=== PATIENT | female | born 1960 | race Two or more races ===

== ENCOUNTER → 2017-10-11 | Outpatient (CLI) | payer OTHER ==
--- NOTE | 2017-10-11 17:42 | RADRPT ---
PROCEDURE: XR bilateral Knees. CLINICAL INDICATION: Bilateral knee pain. TECHNIQUE: 5 views of both knees are available for review. COMPARISON: None available FINDINGS: Right side: Severe medial, moderately severe patellofemoral, and moderate lateral compartment arthro sis change consists of joint space narrowing indicating chondromalacia, subcortical sclerosis and cy st formation, osteophyte formation and bone remodeling. There is a small joint effusion. No evidence for fracture. Left side: Severe arthrosis of the medial compartment, moderately severe changes of the patellofem oral joint, and moderate changes of the lateral compartment consist of joint space narrowing indicat ing chondromalacia, subcortical sclerosis and cyst formation, osteophyte formation and bone remodeli ng. There is a moderate joint effusion. No evidence for acute fracture. IMPRESSION: 1. Moderate to severe arthrosis of the knee joints affecting the medial compartments to the greates t degree. 2. No acute fractures seen. RPTAT: XX .Niranjan Macdonald MD, MD Date Time Electronically viewed and signed by .Niranjan Macdonald MD, on 10/11/2017 17:42 .T/
--- NOTE | 2017-10-12 05:10 | HKNOTE ---
DATE OF SERVICE: CHIEF COMPLAINT: Bilateral knee pain. HISTORY OF PRESENT ILLNESS: This is a 57-year-old female who is obese with history of diabetes anita itus, complaining of bilateral knee pain. She states that the pain has been progressively worsening . She has recently started performing physical therapy. She does not use any assistive devices. S he has not had any previous injections. She does not take any pain medications. She denies any his tory of trauma. She denies any groin or back pain. The pain is on the inside of both knees. She h as difficulty performing her activities of daily living. She has difficulty walking and climbing st airs. Gait: Antalgic gait, reciprocal gait pattern, right knee. PHYSICAL EXAMINATION: Varus alignment, tender over the medial joint line, a 0 to 120 degrees range of motion, stable to varus valgus stress. Negative Ori, negative anterior drawer, negative post erior drawer, negative Vy's. Left knee exam varus alignment. Tender over the medial joint line, -10 to 100 degrees range of clau on. Crepitus with passive range of motion, negative Ori, negative anterior drawer, negative pos terior drawer, stable to varus valgus stress. Negative Vy's. Motor strength 5/5, hamstrings, quadriceps, tibialis anterior, gastroc soleus bilaterally. X-rays right knee. There is tricompartmental osteoarthritis with marginal osteophytes and subchondr al sclerosis. X-rays left knee. There is tricompartmental osteoarthritis with marginal osteophytes and subchondra l sclerosis. IMPRESSION: A 57-year-old female with bilateral knee osteoarthritis. PLAN: She will continue outpatient physical therapy. We will request authorization for bilateral k nee Monovisc injections. She was instructed on weight loss. She will follow up for her knee inject ions pending approval. Dictated By: STORMY SINGH/CHEY Conf#: [id number] DID#: [id number]
== END | disposition home or self-care (01) ==
LOC: HKI 09:25
PROVIDERS: ATTEND Orthopaedic Surgery Adult Reconstructive Orthopaedic Surgery
DX: M17.0 Bilateral primary osteoarthritis of knee (principal); E11.9 Type 2 diabetes mellitus without complications
CPT/HCPCS: 73564; Z7500; G0463

== ENCOUNTER → 2017-10-21 | Outpatient (CLI) | END | disposition home or self-care (01) ==

== ENCOUNTER 2018-12-02 20:49 | Emergency (ER) | payer OTHER ==
[~2018-12-02] VITALS: Wt 120.7 kg
[2018-12-02] MEDS ORDERED: METF500T24 PO (22:27)
[2018-12-02] MEDS ORDERED: OMEP20CA16 PO (22:28)
[2018-12-02] MEDS ORDERED: ATEN-51 PO (22:28)
[2018-12-02] MEDS ORDERED: LIDOCAINE/MYLANTA 40 ML BTL PO ONE (22:30)
[2018-12-02] MEDS ORDERED: HYDROCHLOROTHIAZIDE PO (22:41)
[2018-12-02] MEDS ORDERED: TRIAMTERENE PO (22:41)
--- NOTE | 2018-12-02 22:53 | ERD ---
ER Documentation Chief Complaint Chief Complaint AP X'S 3 WEEKS HPI This is a 58-year-old female presents for abdominal pain for 3 weeks, she went to all of the hospital, which states she had an abdominal workup with a CT, and they had told her that she was constipated, she was given lactulose, her pain has been in the left side and constant, she has been having bowel movements and has been passing gas, she denies any chest pain or shortness of breath. He has not had any nausea vomiting, she has had no bloody stools. She is scheduled to follow-up with her primary care doctor this week. ROS All systems reviewed and are negative except as per history of present illness. Medications Home Meds Active Scripts Polyethylene Glycol* (Miralax*) 17 Gm Powd.pack, 17 GM PO DAILY, #7 Prov:BEULAH GARCIA MD 12/02/18 Docusate Sodium* (Colace*) 100 Mg Capsule, 100 MG PO TID, #30 CAP Prov:BEULAH GARCIA MD 12/02/18 Reported Medications [Triam/Hctz 75MG/50MG] No Conflict Check, 1 TAB PO DAILY 12/02/18 Omeprazole* (Omeprazole*) 20 Mg Capsule.dr, 20 MG PO DAILY, #30 CAP 12/02/18 Atenolol* (Atenolol*) 25 Mg Tablet, 25 MG PO DAILY, #30 TAB 12/02/18 Metformin Hcl* (Metformin Hcl*) 500 Mg Tablet, 500 MG PO WITH BREAKFAST DINNE, #60 TAB 12/02/18 Allergies Allergies: Coded Allergies: No Known Allergy (Unverified , 12/02/18) Physical Exam Vitals Vital Signs Date Temp Pulse Resp B/P (MAP) Pulse Ox O2 O2 Flow FiO2 Time Delivery Rate 12/03/18 76 18 125/75 98 Room Air 00:02 (92) 12/02/18 98.4 99 18 138/82 98 Room Air 21:20 (100) 12/02/18 98.4 86 18 143/79 98 21:20 (100) 12/02/18 98.4 86 18 143/79 98 20:51 (100) Physical Exam Const: No acute distress Head: Atraumatic Eyes: Normal Conjunctiva ENT: Normal External Ears, Nose and Mouth. Neck: Full range of motion. No meningismus. Resp: Clear to auscultation bilaterally Cardio: Regular rate and rhythm, no murmurs Abd: Soft, tenderness over the left upper quadrant, non distended. Normal bowel sounds. There is no McBurney's point tenderness, there is no rebound or guarding Skin: No petechiae or rashes Back: No midline or flank tenderness Ext: No cyanosis, or edema Neur: Awake and alert Psych: Normal Mood and Affect Result Diagram: 12/02/18213312/02/182133 Results 24 hrs Laboratory Tests Test 12/02/18 21:33 12/02/18 21:34 12/02/18 21:37 Urine Color STRAW Urine Clarity CLEAR Urine pH 6.0 Urine Specific Macy 1.012 Urine Ketones NEGATIVE mg/dL Urine Nitrite NEGATIVE mg/dL Urine Bilirubin NEGATIVE mg/dL Urine Urobilinogen NEGATIVE mg/dL Urine Leukocyte Esterase NEGATIVE Brittany/ul Urine Hemoglobin NEGATIVE mg/dL Urine Glucose NEGATIVE mg/dL Urine Total Protein NEGATIVE mg/dl White Blood Count 9.0 10^3/ul Red Blood Count 4.69 10^6/ul Hemoglobin 13.1 g/dl Hematocrit 38.6 % Mean Corpuscular Volume 82.3 fl Mean Corpuscular Hemoglobin 27.9 pg Mean Corpuscular 33.9 g/dl Hemoglobin Concent Red Cell Distribution Width 13.2 % Platelet Count 243 10^3/UL Mean Platelet Volume 11.2 fl Immature Granulocytes % 0.300 % Neutrophils % 59.1 % Lymphocytes % 33.9 % Monocytes % 5.4 % Eosinophils % 1.0 % Basophils % 0.3 % Nucleated Red Blood Cells % 0.0 /100WBC Immature Granulocytes # 0.030 10^3/ul Neutrophils # 5.3 10^3/ul Lymphocytes # 3.0 10^3/ul Monocytes # 0.5 10^3/ul Eosinophils # 0.1 10^3/ul Basophils # 0.0 10^3/ul Nucleated Red Blood Cells # 0.0 10^3/ul Sodium Level 141 mmol/L Potassium Level 3.9 mmol/L Chloride Level 102 mmol/L Carbon Dioxide Level 26 mmol/L Anion Gap 13 Blood Urea Nitrogen 22 mg/dl Creatinine 1.12 mg/dl Est Glomerular Filtrat 50 mL/min Rate mL/min Glucose Level 136 mg/dl Calcium Level 9.7 mg/dl Total Bilirubin 0.1 mg/dl Direct Bilirubin 0.00 mg/dl Indirect Bilirubin 0.1 mg/dl Aspartate Amino 48 IU/L Transf (AST/SGOT) Alanine 52 IU/L Aminotransferase (ALT/SGPT) Alkaline Phosphatase 135 IU/L Troponin I < 0.012 ng/ml Total Protein 8.3 g/dl Albumin 4.6 g/dl Globulin 3.70 g/dl Albumin/Globulin Ratio 1.24 Lipase 69 U/L Bedside Urine pH (LAB) 6.0 Bedside Urine Protein (LAB) Negative Bedside Urine Glucose (UA) Negative Bedside Urine Ketones (LAB) Negative Bedside Urine Blood Trace-intact Bedside Urine Nitrite (LAB) Negative Bedside Urine Leukocyte Esterase Negative (L Current Medications Medications Dose Sig/Kasie Start Time Status Last (Trade) Ordered Route PRN Stop Time Admin Dose Reason Admin 40 ml ONCE ONCE 12/02/18 DC 12/02/18 Miscellaneous PO 22:30 12/02/18 22:14 Medication 22:31 (Gi Cocktail (2)) Procedures/MDM This is a 58-year-old female presents for evaluation of intermittent abdominal pain exam reveals a pleasant well-appearing nontoxic female, with no peritoneal signs on abdominal exam. Her labs are overall unremarkable, troponin and EKG was ordered to assess for atypical angina, this was negative, and her symptoms appear to be more GI related. Her CT results are noted below, which show mild constipation but no acute disease, she will be discharged on Colace and MiraLAX, I advised her to follow-up with her PMD, but to return for any changes in her symptoms, nausea vomiting, or any worsening symptoms, at discharge she was in no acute distress. EKG: Rate/Rhythm: Normal Sinus Rhythm QRS, ST, T-waves: No changes consistent w/ acute ischemia Impression: No evidence of ischemia or arrhythmia MPRESSION: CT of the abdomen pelvis demonstrate no acute intra-abdominal intrapelvic process. There is scattered diverticulosis. Scattered stool seen throughout the colon would clinically correlate for mild constipation. Fatty infiltration of enlarged liver. Status post cholecystectomy. There is a hypodense lesion in the right pelvis which could represent an adnexal cyst measuring up to 3.5 cm. Ultrasound can be obtained better evaluate Departure Diagnosis: Primary Impression: Abdominal pain Abdominal location: generalized Qualified Codes: R10.84 - Generalized abdominal pain Additional Impression: Constipation Constipation type: unspecified constipation type Qualified Codes: K59.00 - Constipation, unspecified Condition: Stable GARCIA,BEULAH MD Dec 02, 2018 22:53
[2018-12-02] MEDS ORDERED: DOCU-144 PO (22:55)
[2018-12-02] MEDS ORDERED: POLY17PO6 PO (22:55)
[2018-12-03 00:02] VITALS: BP 125/75; PULSE 76; RESP 18
== END 2018-12-03 00:13 | disposition home or self-care (01) ==
LOC: E/R 20:49
DX: K59.00 Constipation, unspecified (principal); Z79.84 Long term (current) use of oral hypoglycemic drugs
CPT/HCPCS: 36415; 74176; 80053; 81003; 83690; 84484; 85025; 93005; Z7502; Z7610